=== PATIENT | male | born 1970 | race Caucasian/White ===

== ENCOUNTER 2018-09-07 11:23 | Emergency (ER) | payer OTHER ==
--- NOTE | 2018-09-07 12:00 | EDM.PDOC ---
ED HPI GENERAL MEDICAL PROBLEM - General Chief Complaint: General Stated Complaint: NECK PAIN - INFUSION YESTERDAY Time Seen by Provider: 09/07/18 12:00 Source of Information: Reports: Patient History Limitations: Reports: No Limitations - History of Present Illness INITIAL COMMENTS - FREE TEXT/NARRATIVE: Patient is a 47-year-old male with a history of hypercholesteremia, hyperparathyroidism, sleep apnea, and chronic pain. Patient states last night at approximately 8:00 he started developing pain to the right lateral aspect of the neck that waxed and wanes in intensity. At approximately 1:30 this morning he awoke with severe pain to the right side of his neck with sharp crawling sensation present. Pain is localized along the old surgical incision from where a lipoma was removed. 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 This occurred in 2012 with no complications thereafter. Patient states yesterday underwent infusion with pamidronate for his hyperparathyroidism. They gave him 9 mg IV over 4 hours. This was his first infusion at the rheumatology clinic. He sees a manager competitive intelligence out of [place] but had the infusion conducted at [place]. He is a regular patient of the [facility]. Patient does have chronic bone pain and states currently the pain is rated a 6 out of 10. This is not unusual. This is chronic for him. The pain to the neck is abnormal and notes he may have laid on the affected side awkwardly. There has been no vision changes, difficult swallowing, throat pain, tooth pain, gum swelling, swelling to his neck, any recent activity/trauma that precipitated pain, chest pain, shortness of breath, hemoptysis, arm pain, back pain, abdominal pain, and/or any additional complaints. He did go to the [facility] today and was sent here for further evaluation. EKG was obtained there indicated normal sinus rhythm with no acute ST changes noted. Patient otherwise have fevers no complaints at this time. Generalized Pain Score (Numeric/FACES): 8 - Related Data Allergies Allergy/AdvReac Type Severity Reaction Status Date / Time bupropion [From Wellbutrin] Allergy Agitation Verified 09/07/18 11:43 varenicline [From Chantix] Allergy Agitation Verified 09/07/18 11:43 Home Meds: Home Meds Cholecalciferol (Vitamin D3) [Vitamin D3] 5,000 unit PO DAILY 09/07/18 [History] Omeprazole Magnesium [Prilosec] 20 mg PO DAILY 09/07/18 [History] Prazosin [Minpress] 2 mg PO DAILY 09/07/18 [History] Past Medical History HEENT History: Reports: Other (See Below) Other HEENT History: [place] Cardiovascular History: Reports: High Cholesterol Respiratory History: Reports: Other (See Below) Other Respiratory History: sleep apnea Endocrine/Metabolic History: Reports: Hyperparathyroidism Social & Family History - Tobacco Use Smoking Status *Q: Current Every Day Smoker Years of Tobacco use: 25 Packs/Tins Daily: 0.5 - Caffeine Use Caffeine Use: Reports: Coffee, Soda - Recreational Drug Use Recreational Drug Use: No ED ROS GENERAL - Review of Systems Review Of Systems: ROS reveals no pertinent complaints other than HPI. ED EXAM, GENERAL - Physical Exam Exam: See Below Exam Limited By: No Limitations General Appearance: Alert, WD/WN, No Apparent Distress Eye Exam: Bilateral Eye: EOMI, Normal Inspection, PERRL Ears: Normal External Exam, Normal Canal, Hearing Grossly Normal, Normal TMs Ear Exam: Bilateral Ear: Other (No proptosis, eye tenderness, or loss of vision. ) Nose: Normal Inspection, Normal Mucosa, No Blood Throat/Mouth: Normal Inspection, Normal Teeth, Normal Gums, Normal Oropharynx, Normal Voice, No Airway Compromise. No: Dysphagia, Inflammation Head: Atraumatic, Normocephalic Neck: Normal Inspection, Supple, Full Range of Motion, Other (Large surgical scar to the right lateral neck just below the mandible. Pinpoint tenderness along the surgical incision over the top of the sternocleidomastoid muscle. Full range of motion. No lymphadenopathy. No hematoma, swelling, bruising, bruits present. Carotid pulses intact bilaterally.). No: Carotid Bruit ( bilateral), Lymphadenopathy (L), Lymphadenopathy (R) Respiratory/Chest: No Respiratory Distress, Lungs Clear, Normal Breath Sounds, No Accessory Muscle Use, Chest Non-Tender Cardiovascular: Normal Peripheral Pulses, Regular Rate, Rhythm, No Murmur GI/Abdominal: Normal Bowel Sounds, Soft, Non-Tender, No Organomegaly, No Distention Back Exam: Normal Inspection, Full Range of Motion Neurological: Alert, Oriented, CN II-XII Intact, Normal Cognition, Normal Gait, No Motor/Sensory Deficits, Other (Patient moves all extremities, speaks normal, gait is normal, no weakness discrepancies to the upper and lower extremities per patient.) Psychiatric: Normal Affect, Normal Mood Skin Exam: Warm, Dry, Intact, Normal Color, No Rash Course - Vital Signs Last Recorded V/S: Last Vital Signs Temp 97.1 F 09/07/18 11:40 Pulse 72 09/07/18 11:40 Resp 20 09/07/18 11:40 BP 125/80 09/07/18 11:40 Pulse Ox 95 09/07/18 11:40 - Orders/Labs/Meds Orders: Active Orders 24 hr Category Date Time Status Peripheral IV Care [RC] . DIRECTED Care 09/07/18 12:58 Active Peripheral IV Insertion Adult [OM.PC] Routine Oth 09/07/18 12:58 Ordered Labs: Laboratory Tests 09/07/18 09/07/18 09/07/18 Range/Units 13:05 13:05 13:05 WBC 7.88 (4.23-9.07) K/mm3 RBC 5.04 (4.63-6.08) M/mm3 Hgb 15.6 (13.7-17.5) gm/L Hct 45.1 (40.1-51.0) % MCV 89.5 (79.0-92.2) fl MCH 31.0 (25.7-32.2) pg MCHC 34.6 (32.2-35.5) g/dl RDW Std Deviation 43.7 (35.1-43.9) fL Plt Count 261 (163-337) K/mm3 MPV 9.7 (9.4-12.3) fl Neutrophils % (Manual) 64 H (40-60) % Band Neutrophils % 0 (0-10) % Lymphocytes % (Manual) 29 (20-40) % Atypical Lymphs % 0 % Monocytes % (Manual) 3 (2-10) % Eosinophils % (Manual) 4 (0.8-7.0) % Basophils % (Manual) 0 L (0.2-1.2) Platelet Estimate Adequate RBC Morph Comment Normal Sodium 139 (136-145) mEq/L Potassium 4.4 (3.5-5.1) mEq/L Chloride 105 (98-107) mEq/L Carbon Dioxide 24 (21-32) mEq/L Anion Gap 14.4 (5-15) BUN 14 (7-18) mg/dL Creatinine 0.9 (0.7-1.3) mg/dL Est Cr Clr Drug Dosing 115.90 mL/min Estimated GFR (MDRD) > 60 (>60) mL/min BUN/Creatinine Ratio 15.6 (14-18) Glucose 97 (74-106) mg/dL Calcium 11.1 H (8.5-10.1) mg/dL Total Bilirubin 0.3 (0.2-1.0) mg/dL AST 27 (15-37) U/L ALT 51 (16-63) U/L Alkaline Phosphatase 72 (46-116) U/L Troponin I < 0.017 (0.00-0.056) ng/mL C-Reactive Protein < 0.2 (<1.0) mg/dL Total Protein 7.0 (6.4-8.2) g/dl Albumin 4.0 (3.4-5.0) g/dl Globulin 3.0 gm/dL Albumin/Globulin Ratio 1.3 (1-2) Meds: Medications Discontinued Medications Generic Name Dose Route Start Last Admin Trade Name Freq PRN Reason Stop Dose Admin Sodium Chloride 1,000 mls @ 250 mls/hr 09/07/18 12:57 09/07/18 13:09 Normal Saline IV 09/07/18 16:56 250 mls/hr ONETIME ONE Administration Ketorolac Tromethamine 15 mg 09/07/18 12:58 09/07/18 13:09 Toradol IVPUSH 09/07/18 12:59 15 mg ONETIME ONE Administration Sodium Chloride 10 ml 09/07/18 12:58 09/07/18 13:09 Saline Flush FLUSH 10 ml ASDIRECTED PRN Administration Keep Vein Open - Re-Assessments/Exams Free Text/Narrative Re-Assessment/Exam: Vital signs are stable as documented. Heart rate within normal limits. He is not tachycardic. SPO2 normal. He is afebrile. On exam he does not appear to be in acute distress. He jokes with me with during examination. He moves his neck left to right up and and down with no difficulties. On exam he has pinpoint tenderness along the sternal mastoid muscle adjacent to surgical scar from where a fatty lipoma was removed. EKG obtained at the [facility] which came back normal. No acute ST changes noted. I did review [facility] clinic visit that did take place today. Differential diagnosis includes: sternocleidomastoid muscle strain, tearing of scar tissue, infection, and carotid dissection to name a few. Most likely muscle strain since pain is reproducible. He has no other concerning symptoms. We will go ahead and obtain basic labs including CBC, chem 14, CRP. I ordered Toradol 15 mg IV along with IV fluids in preparation for CTA of the neck if warranted. I have offered to go ahead and order a CTA of the neck to which the patient has been diffuse. Request last be obtained and resulted prior to ordering. I did review the adverse side effects with taking the pamidronate. Severe reactions will include atrial fibrillation, tachycardia, osteonecrosis of the jaw which takes months, severe muscle pain. In addition, and reactions include bone pain, headache, abdominal pain, insomnia, arthralgia, and dizziness. Labs reviewed: CBC indicated white blood cell count 7.88, hemoglobin 15.6, and platelet count 261. Chemistry panel was essentially normal - calcium 11.1. CRP normal. LFTs normal. 1955 Discussed labs with patient. Patient states pain has resolved with the administration of Toradol. Patient states it's muscle related. States yesterday while getting the infusion he was sitting there for extended period of time and his neck was bent in a awkward upper position for long period of time. Again I have offered further testing with CTA of the neck to evaluate for any vascular abnormalities and/or infection to which the patient has refused. Return precautions were discussed with the patient. Patient had no more further questions or concerns. Discharge instructions as documented. Per patient his normal ca levels were 11.8. The pamidronate infusion was a onetime therapy at this time. Departure - Departure Time of Disposition: 14:04 Disposition: Home, Self-Care 01 Condition: Good Clinical Impression: Neck pain on right side - Discharge Information Instructions: Musculoskeletal Pain Referrals: Berenice Herman MD [Primary Care Provider] - Forms: ED Department Discharge Additional Instructions: Pain was relieved with the administration of a NSAID. May utilize Aleve 1-2 tabs twice a day when necessary for pain. May also use Tylenol 650 mg 4 times a day when necessary for pain as well. Refrain from any activities that cause worsening discomfort. Please monitor for any new or worsening symptoms. If so please return back to the ED for further evaluation. - My Orders Last 24 Hours: My Active Orders 09/07/18 12:58 Peripheral IV Care [RC] . DIRECTED Peripheral IV Insertion Adult [OM.PC] Routine - Assessment/Plan Last 24 Hours: My Active Orders 09/07/18 12:58 Peripheral IV Care [RC] . DIRECTED Peripheral IV Insertion Adult [OM.PC] Routine
[2018-09-07] MEDS ORDERED: Sodium Chloride 0.9% 1,000 ML IV ONE (12:57)
[2018-09-07] MEDS ORDERED: Ketorolac 15 MG/ML SDV IVPUSH ONE (12:58)
[2018-09-07] MEDS ORDERED: Sodium Chloride 0.9% 10 ML Syringe FLUSH PRN (12:58)
== END 2018-09-07 14:17 | disposition home or self-care (01) ==
LOC: JD.ED 11:23
DX: M54.2 Cervicalgia (principal); E78.00 Pure hypercholesterolemia, unspecified; F17.210 Nicotine dependence, cigarettes, uncomplicated; Z88.8 Allergy status to other drugs, medicaments and biological substances; Z79.899 Other long term (current) drug therapy
CPT/HCPCS: 36415; 80053; 84484; 85007; 85027; 86140; 96361; 96374; 99283; J1885; J7040; 99284